=== PATIENT | female | born 1975 | race Caucasian/White ===

== ENCOUNTER 2019-11-18 19:36 | Emergency (ER) | payer OTHER, MEDICAID ==
[~2019-11-18] VITALS: Ht 162.6 cm; Wt 72.6 kg
[~2019-11-18 19:36] MED LIST: CALCIUM +D & M1 EAC1; CIPROFLOXACIN500 M1 PO; FLOMAX0.4 MG PO; FOLIC ACID0.8 MG PO; FOLIC ACID1 MG PO; IBUPROFEN 800800 MG PO; LOESTRIN1 EAC1 PO; PERCOCET 5-3251 EACH PO; PRENATAL + DHA1 EACH PO; PRENATAL PO; REMERON15 MG PO; WELLBUTRIN XL300 MG PO; XANAX 0.5 MG0.5 M1 PO; ZOFRAN ODT4 MG PO
[2019-11-18] MEDS ORDERED: AMBIEN5 MG PO (19:48)
[2019-11-18] MEDS ORDERED: EFFEXOR XR75 MG PO (19:48)
[2019-11-18] MEDS ORDERED: BUSPIRONE HCL10 MG PO (19:49)
[2019-11-18] MEDS ORDERED: AUGMENTIN 875-1 EACH PO (22:15)
[2019-11-18] MEDS ORDERED: NORCO 5-325 TA1 EAC1 PO (22:15)
[2019-11-18 22:41] VITALS: BP 162/92
== END 2019-11-18 22:44 | disposition home or self-care (01) ==
LOC: M.ERS 19:36
DX: S61.412A Laceration without foreign body of left hand, initial encounter (principal); S61.211A Laceration without foreign body of left index finger without damage to nail, initial encounter; S61.210A Laceration without foreign body of right index finger without damage to nail, initial encounter; I10 Essential (primary) hypertension; Z98.890 Other specified postprocedural states; W54.0XXA Bitten by dog, initial encounter; Y93.89 Activity, other specified; Y92.89 Other specified places as the place of occurrence of the external cause; Y99.8 Other external cause status